=== PATIENT | female | born 1965 | race Caucasian/White ===

== ENCOUNTER → 2017-02-15 | Outpatient (CLI) | payer BC ==
[~2017-02-15] VITALS: Ht 161.3 cm; Wt 74.4 kg
[~2017-02-15] MED LIST: ATIVAN0.5 MG PO; COLACE100 MG PO; MOTRIN600 MG PO; ZOLOFT100 MG PO
== END | disposition home or self-care (01) ==
LOC: AMB 12:18
DX: Z12.11 Encounter for screening for malignant neoplasm of colon (principal); D12.3 Benign neoplasm of transverse colon; K63.5 Polyp of colon; R14.0 Abdominal distension (gaseous); K59.00 Constipation, unspecified; F34.1 Dysthymic disorder; F42.9 Obsessive-compulsive disorder, unspecified; E66.9 Obesity, unspecified; R32 Unspecified urinary incontinence; Z85.828 Personal history of other malignant neoplasm of skin
CPT/HCPCS: 88305; J2250; J3010